=== PATIENT | female | born 1960 | race Caucasian/White ===

== ENCOUNTER → 2018-01-15 11:55 | Outpatient (CLI) | payer OTHER, SELFPAY ==
--- NOTE | 2018-01-15 | DI.MG.S_ITS ---
BILATERAL DIGITAL SCREENING MAMMOGRAM 3D/2D WITH CAD: 01/15/2018 CLINICAL: Routine screening. Comparison is made to exams dated: 08/19/2016 mammogram, 09/05/2014 mammogram, and 03/20/2015 mammogram - [facility]. There are scattered fibroglandular elements in both breasts. Current study was also evaluated with a Computer Aided Detection (CAD) system. There is an asymmetry in the right breast anterior depth lower region seen on the mediolateral oblique view only. No other significant masses, calcifications, or other findings are seen in either breast. IMPRESSION: INCOMPLETE: NEEDS ADDITIONAL IMAGING EVALUATION The asymmetry in the right breast is indeterminate. Additional views with possible ultrasound are recommended. This exam was interpreted at Station ID: [id number]. NOTE: For mammograms, a report in lay terms will be sent to the patient. Approximately 15% of breast malignancies will not be visualized mammographically. In the management of a palpable breast mass, a negative mammogram must not discourage biopsy of a clinically suspicious lesion. Electronically Signed By: Steve Barth M.D. ecl/:01/15/2018 20:03:46 letter sent: Additional Imaging Needed ACR BI-RADS Category 0: Incomplete 3340F
== END ==
PROVIDERS: PCP Nurse Practitioner Family; Visit Provider Nurse Practitioner Family
DX: Z12.31 Encounter for screening mammogram for malignant neoplasm of breast (principal)
CPT/HCPCS: 77063; 77067

== ENCOUNTER → 2018-02-05 09:26 | Outpatient (CLI) | payer OTHER, SELFPAY ==
--- NOTE | 2018-02-05 | DI.US.S_ITS ---
ULTRASOUND OF RIGHT BREAST: 02/05/2018 CLINICAL: Patient returns for additional imaging over a suspected mass in the right breast. Comparison is made to exams dated: 02/05/2018 mammogram, 01/15/2018 mammogram, and 08/19/2016 mammogram - [facility]. Color flow ultrasound of the right breast was performed. Rollins scale images of the real-time examination were reviewed. There is a 0.8 cm x 0.5 cm x 0.5 cm irregular mass in the right breast at 12 o'clock anterior depth 2 cm from the nipple. This irregular mass is hypoechoic. IMPRESSION: SUSPICIOUS OF MALIGNANCY - FOLLOW-UP RECOMMENDED The 0.8 cm x 0.5 cm x 0.5 cm irregular mass in the right breast is suspicious of malignancy. An ultrasound guided biopsy is recommended. Following biopsy recommend correlation with post biopsy clip placement. Pending pathology, an MRI may be needed for further evaluation of the remaining right breast asymmetry. Findings discussed with the patient by Dr. Greene of the department of radiology in person at the time of evaluation. This exam was interpreted at Station ID: [id number]. Electronically Signed By: Buck Zhao M.D. cj/:02/05/2018 11:32:07 letter sent: Biopsy Required Ultrasound BI-RADS: 4 Suspicious abnormality
--- NOTE | 2018-02-05 | DI.MG.S_ITS ---
UNILATERAL RIGHT DIGITAL DIAGNOSTIC MAMMOGRAM 3D/2D WITH ADDITIONAL VIEWS: 02/05/2018 CLINICAL: Additional evaluation requested from prior study. Comparison is made to exams dated: 01/15/2018 mammogram, 08/19/2016 mammogram, and 03/20/2015 mammogram - [facility]. There are scattered fibroglandular elements in the right breast. There is a 7 mm asymmetry in the right breast anterior depth superior region seen on the mediolateral oblique view only. There also is an asymmetry in the right breast central to the nipple in the retroareolar region. No other significant masses or calcifications are seen in the breast. IMPRESSION: INCOMPLETE: NEEDS ADDITIONAL IMAGING EVALUATION The 7 mm asymmetry in the right breast anterior depth superior region seen on the mediolateral oblique view only is indeterminate. An ultrasound is recommended. The asymmetry in the right breast central to the nipple in the retroareolar region is indeterminate. An ultrasound is recommended. This exam was interpreted at Station ID: [id number]. NOTE: For mammograms, a report in lay terms will be sent to the patient. Approximately 15% of breast malignancies will not be visualized mammographically. In the management of a palpable breast mass, a negative mammogram must not discourage biopsy of a clinically suspicious lesion. Electronically Signed By: Buck loera/rusty:02/05/2018 11:27:55 ACR BI-RADS Category 0: Incomplete 3340F
== END ==
PROVIDERS: PCP Nurse Practitioner Family; Visit Provider Nurse Practitioner Family
DX: R92.8 Other abnormal and inconclusive findings on diagnostic imaging of breast (principal); N63.10 Unspecified lump in the right breast, unspecified quadrant
CPT/HCPCS: 76642; 77065; G0279

== ENCOUNTER → 2018-03-05 08:10 | Outpatient (CLI) | payer OTHER, SELFPAY ==
--- NOTE | 2018-03-05 | DI.MG.S_ITS ---
UNILATERAL RIGHT DIGITAL DIAGNOSTIC MAMMOGRAM: 03/05/2018 CLINICAL: Post clip placement. Right breast mass. Comparison is made to exams dated: 02/05/2018 mammogram, 01/15/2018 mammogram, and 08/19/2016 mammogram - [facility]. There are scattered fibroglandular elements in the right breast. There is a adilia-shaped marker clip in the appropriate position in the right breast at 12 o'clock anterior depth. This marker clip placement is at biopsy site. IMPRESSION: POST PROCEDURE MAMMOGRAM FOR MARKER PLACEMENT There is a adilia-shaped marker clip in the appropriate position in the right breast at 12 o'clock anterior depth. This marker clip placement is at biopsy site. This exam was interpreted at Station ID: [id number]. NOTE: For mammograms, a report in lay terms will be sent to the patient. Approximately 15% of breast malignancies will not be visualized mammographically. In the management of a palpable breast mass, a negative mammogram must not discourage biopsy of a clinically suspicious lesion. Electronically Signed By: Steve Barth M.D. ecl/:03/05/2018 09:50:43 ACR BI-RADS Category Post-procedure mammogram for marker placement
--- NOTE | 2018-03-05 | PATH_ITS ---
[facility] Accession Number: [id number] . 01 Material submitted: . RIGHT BREAST . 01 Clinical history: . MASS 12:00 2CM FROM NIPPLE . 02 Diagnosis: Right Breast Needle Core Biopsy, 12 o'clock, 2 cm from the Nipple: Benign breast tissue with very dense hyalinized stroma, with no evidence of significant atypia or malignancy. MRV/03/06/2018 . 02 Electronically signed: . Randolph Du MD, Pathologist NPI- [id number] . 01 Gross description: . Received one formalin-filled container labeled with the patient's name and designated right breast mass 12 o'clock, 2 cm from nipple. The specimen is received with plastic filter in container. Sample loose in container. The specimen consists of multiple yellow-pickering cylindrical shaped portions of tissue and blood, which aggregate to 2.0 x 0.9 x 0.3 cm. The specimen is filtered, wrapped and entirely submitted in one cassette. Collection date 03/05/2018. Collection time 0905 per container. Total fixation time 12 hours up to 24. ([facility]:cmc80 [id number]) /[facility] . 02 Pathologist provided ICD-10: R92.8 . 02 CPT . 760314 Specimen Comment: A duplicate report has been generated due to demographic updates. Performed at: 01 [facility] [address] [facility] [place], [place], [place] [id number] MD Mario Landon MD Phone: [phone] Performed at: 02 [facility] [address] [place], [place] [id number] MD Boom Dejesus MD Phone: [phone]
--- NOTE | 2018-03-05 | DI.US.S_ITS ---
ULTRASOUND GUIDED BIOPSY RIGHT BREAST USING VACUUM DEVICE WITH MARKING DEVICE INSERTED AND POST DIGITAL MAMMOGRAPHIC IMAGIN03/05/2018 CLINICAL: Right breast mass. PATIENT CONSENT: Risks (minor bleeding, infection, vasovagal reaction and repeat procedure), benefits and alternatives were explained to the patient and written informed consent was obtained. Correlation is made to exams dated: 02/05/2018 ultrasound, 02/05/2018 mammogram, and 01/15/2018 mammogram - [facility]. An ultrasound guided biopsy using real-time ultrasound was performed for the concerning mass located in the right breast at 12 o'clock anterior depth 2 cm from the nipple. This was described on the previous ultrasound report. The skin was prepped in the usual manner. 5 mL of 1% lidocaine and 5 mL of 1% lidocaine with epinephrine was used for local anesthesia. A skin graciela was made in the breast. The abnormality was approached from the lateral aspect. A 13 gauge biopsy needle was placed adjacent to the abnormality under ultrasound guidance. Once the needle was documented to be in the correct location, six specimens were obtained using the Mammotome biopsy system. A Dash-shaped clip was inserted into the biopsy cavity. A skin adhesive was applied to the access site. Post procedure digital mammographic imaging demonstrates the clip at the targeted area. The specimens were sent to the laboratory for pathological analysis. IMPRESSION: ULTRASOUND GUIDED BIOPSY BENIGN Ultrasound guided biopsy of the mass in the right breast at 12 o'clock anterior depth 2 cm from the nipple was successful with no apparent post procedure complications. The pathology demonstrates benign breast tissue with very dense hyalinized stroma, which is concordant with imaging findings. Please note, the biopsy clip is located in the region of the 7 mm asymmetry described on the comparison diagnostic mammogram and ultrasound of 02/05/[address] Buck Zhao. Given the concordant radiologic and pathologic findings, breast MRI is not recommended at this time. However, there is no definite ultrasound correlate to the subareolar asymmetry described on the mammogram dated 02/05/18. 6 Month follow up mammogram and ultrasound is recommended to demostrate stability of this asymmmetry. This exam was interpreted at Station ID: [id number]. Steve Ugalde M.D. [facility],lk/:03/12/2018 17:19:00
--- NOTE | 2018-03-05 19:59 | PATH_ITS ---
Ptient Report Specimen ID: [id number] Control ID: [id number] [facility] PATHOLOGY ONLY [address] [facility] [id number] [facility] [address] Patient Details JANET ORTIZ : 1960 Age(y/m/d): Gender: F SSN: Specimen Details Date collected: 03/05/20181958 Local Date received: 03/05/2018 Date entered: 03/05/2018 Date reported: 03/08/2018 1305 ET Physician Details Ordering: Angelita CABAN Referring: ID: NPI: Additional Information: Clinical Info: [id number] Tests Ordered: Pathology Report Clinician Provided ICD Code(s) & Clinical History: (01) MASS 12:00 2CM FROM NIPPLE Material Submitted: () RIGHT BREAST Diagnosis: (02) Right Breast Needle Core Biopsy, 12 o'clock, 2 cm from the Nipple: Benign breast tissue with very dense hyalinized stroma, with no evidence of significant atypia or malignancy. MRV/03/06/2018 Pathologist Provided ICD Code(s): (02) R92.8 CPT Codes: (02) 829798 Gross Description: (01) Received one formalin-filled container labeled with the patient's name and designated right breast mass 12 o'clock, 2 cm from nipple. The specimen is received with plastic filter in container. Sample loose in container. The specimen consists of multiple yellow-pickering cylindrical shaped portions of tissue and blood, which aggregate to 2.0 x 0.9 x 0.3 cm. The specimen is filtered, wrapped and entirely submitted in one cassette. Collection date 03/05/2018. Collection time 0905 per container. Total fixation time 12 hours up to 24. ([facility]:cmc80 [id number]) /EMILY Comments: ACC: [id number] PID: [id number] A duplicate report has been generated due to demographic updates. Electronically signed by () Randolph Du MD, Pathologist NPI- [id number]
== END ==
PROVIDERS: PCP Nurse Practitioner Family; Visit Provider Nurse Practitioner Family
DX: R92.8 Other abnormal and inconclusive findings on diagnostic imaging of breast (principal); N63.10 Unspecified lump in the right breast, unspecified quadrant
CPT/HCPCS: 19083; 77065

== ENCOUNTER → 2018-09-21 08:54 | Outpatient (CLI) | payer OTHER, SELFPAY ==
--- NOTE | 2018-09-21 | DI.MG.S_ITS ---
UNILATERAL RIGHT DIGITAL DIAGNOSTIC MAMMOGRAM 3D/2D SHORT-TERM FOLLOW-UP: 09/21/2018 CLINICAL: Short term follow up right breast. Comparison is made to exams dated: 03/05/2018 mammogram, 02/05/2018 mammogram, 01/15/2018 mammogram, and 08/19/2016 mammogram - [facility]. There are scattered fibroglandular elements in right breast. There is a glandular asymmetry in the right breast at 12 o'clock anterior depth. This has not significantly changed. There is a biopsy clip associated with the asymmetry. No other significant masses or calcifications are seen in the breast. IMPRESSION: INCOMPLETE: NEEDS ADDITIONAL IMAGING EVALUATION The asymmetry in the right breast, previously biopsied, appears stable, consistent with fibroglandular tissue. An ultrasound is recommended for confirmation of stability and benignity. This was performed immediately following this exam. This exam was interpreted at Station ID: [id number]. NOTE: For mammograms, a report in lay terms will be sent to the patient. Approximately 15% of breast malignancies will not be visualized mammographically. In the management of a palpable breast mass, a negative mammogram must not discourage biopsy of a clinically suspicious lesion. Electronically Signed By: Galina martinez/:09/21/2018 09:50:44 ACR BI-RADS Category 0: Incomplete 3340F
--- NOTE | 2018-09-21 | DI.US.S_ITS ---
LIMITED ULTRASOUND OF RIGHT BREAST: 09/21/2018 CLINICAL: 6 month follow-up biopsy. Comparison is made to exams dated: 09/21/2018 mammogram, 03/05/2018 ultrasound biopsy, 03/05/2018 mammogram, 02/05/2018 ultrasound, 02/05/2018 mammogram, and 01/15/2018 mammogram - [facility]. Ultrasound of the right breast 12 o'clock region was performed. There is a 0.6 cm x 0.4 cm x 0.6 cm mass in the right breast at 12 o'clock anterior depth, stable in size and morphology. There is an associated biopsy clip. IMPRESSION: BENIGN There is no sonographic evidence of malignancy. The stable 0.6 cm x 0.4 cm x 0.6 cm mass in the right breast is biopsy proven benign. Return to annual mammogram screening schedule is recommended. Findings and recommendations were conveyed to the patient. This exam was interpreted at Station ID: [id number]. Electronically Signed By: Galina martinez/:09/21/2018 17:25:56 letter sent: Normal Exam Ultrasound BI-RADS: 2 Benign
== END ==
PROVIDERS: PCP Nurse Practitioner Family; Visit Provider Nurse Practitioner Family
DX: R92.8 Other abnormal and inconclusive findings on diagnostic imaging of breast (principal); D24.1 Benign neoplasm of right breast
CPT/HCPCS: 76642; 77065; G0279

== ENCOUNTER → 2019-01-21 14:56 | Outpatient (CLI) | payer OTHER, SELFPAY ==
--- NOTE | 2019-01-21 | DI.MG.S_ITS ---
BILATERAL DIGITAL SCREENING MAMMOGRAM 3D/2D WITH CAD: 01/21/2019 CLINICAL: Routine screening. Comparison is made to exams dated: 09/21/2018 mammogram, 03/05/2018 mammogram, 02/05/2018 mammogram, 01/15/2018 mammogram, 08/19/2016 mammogram, and 03/05/2018 ultrasound [facility]. There are scattered fibroglandular elements in both breasts. Current study was also evaluated with a Computer Aided Detection (CAD) system. There is a benign biopsy clip in the right breast. No significant masses, calcifications, or other findings are seen in either breast. There has been no significant interval change. IMPRESSION: NEGATIVE There is no mammographic evidence of malignancy. A 1 year screening mammogram is recommended. This exam was interpreted at Station ID: [id number]. NOTE: For mammograms, a report in lay terms will be sent to the patient. Approximately 15% of breast malignancies will not be visualized mammographically. In the management of a palpable breast mass, a negative mammogram must not discourage biopsy of a clinically suspicious lesion. Electronically Signed By: Steve martinez/rusty:01/21/2019 19:27:55 letter sent: Normal Exam ACR BI-RADS Category 1: Negative 3341F
== END ==
PROVIDERS: PCP Nurse Practitioner Family; Visit Provider Nurse Practitioner Family
DX: Z12.31 Encounter for screening mammogram for malignant neoplasm of breast (principal)
CPT/HCPCS: 77063; 77067

== ENCOUNTER → 2021-01-11 15:01 | Outpatient (CLI) | payer OTHER, SELFPAY ==
--- NOTE | 2021-01-11 | DI.MG.S_ITS ---
BILATERAL DIGITAL SCREENING MAMMOGRAM 3D/2D WITH CAD: 01/11/2021 CLINICAL: Routine screening. Comparison is made to exams dated: 01/21/2019 mammogram, 09/21/2018 mammogram, 03/05/2018 mammogram, 02/05/2018 mammogram, and 01/15/2018 mammogram - [facility]. There are scattered fibroglandular elements in both breasts. Current study was also evaluated with a Computer Aided Detection (CAD) system. There is a biopsy clip in the right breast. No significant masses, calcifications, or other findings are seen in either breast. There has been no significant interval change. IMPRESSION: NEGATIVE There is no mammographic evidence of malignancy. A 1 year screening mammogram is recommended. This exam was interpreted at Station ID: [id number]. NOTE: For mammograms, a report in lay terms will be sent to the patient. Approximately 15% of breast malignancies will not be visualized mammographically. In the management of a palpable breast mass, a negative mammogram must not discourage biopsy of a clinically suspicious lesion. Electronically Signed By: Ruben otero/rusty:01/11/2021 15:40:59 letter sent: Normal Exam ACR BI-RADS Category 1: Negative 3341F
== END ==
PROVIDERS: PCP Internal Medicine; Referring Provider Internal Medicine; Visit Provider Internal Medicine
DX: Z12.31 Encounter for screening mammogram for malignant neoplasm of breast (principal)
CPT/HCPCS: 77063; 77067

== ENCOUNTER → 2022-03-21 07:41 | Outpatient (CLI) | payer OTHER, SELFPAY ==
[2022-03-21 09:35] LABS: Basophils Absolute Auto 100 /uL (0-100); Basophils Percent Auto 1.7 % (0-2); Eosinophils Absolute Auto 100 /uL (0-450); Hematocrit 41.5 % (36-46); Hemoglobin 14.2 g/dL (12.0-16.0); Lymphocytes Absolute Auto 2300 /uL (1100-4500); Lymphocytes Percent Auto 48.8 % (25-40); Mean Corpuscular HGB Conc 34.2 % (30-36); Mean Corpuscular Hemoglobin 30.5 PG (26-34); Mean Corpuscular Volume 89.3 fL (80-100); Monocytes Absolute Auto 400 /uL (0-900); Monocytes Percent Auto 9.4 % (3-14); Neutrophils Absolute Auto 1800 /uL (1500-7000); Neutrophils Percent Auto 38.1 % (50-75); Platelet Count 290 X10^3/uL (150-400); Red Blood Cell Count 4.64 X10^6/uL (4.0-5.2); Red Cell Distribution Width 12.8 % (11.6-14.8); White Blood Cell Count 4.7 X10^3/uL (4.5-11.0)
[2022-03-21 11:00] LABS: Alanine Aminotransferase 26 IU/L (<35); Albumin 4.3 g/dL (3.5-5.0); Albumin Globulin Ratio 1.7 (1.0-2.8); Alkaline Phosphatase 62 U/L (38-126); Aspartate Aminotransferase 27 IU/L (14-36); BUN Creatinine Ratio 20.6 (6-22); Bilirubin Total 0.5 mg/dL (0.2-1.3); Blood Urea Nitrogen 14 mg/dL (7-17); Calcium 9.1 mg/dL (8.4-10.2); Carbon Dioxide 28 mmol/L (22-32); Chloride 98 mmol/L (98-107); Cholesterol 230 mg/dL (140-199); Estimated Glomerular Filt Rate > 60 mL/min (>60); Globulin 2.5 g/dL (1.7-4.1); Glucose 78 mg/dL (70-100); HDL Cholesterol 65 mg/dL (40-60); HEMOLYSIS < 15 (0-50); LDL Cholesterol Calculated 148 mg/dL (<100); Potassium 4.2 mmol/L (3.4-5.1); Sodium 136 mmol/L (137-145); Total Protein 6.8 g/dL (6.3-8.2); Triglycerides 86 mg/dL (35-150)
[2022-03-21 21:33] LABS: Add Manual Diff / Slide Review SLIDE REVIEW; Platelet Estimate Adequate on smear; RBC Morphology Normal Morphology
== END ==
PROVIDERS: PCP Internal Medicine; Referring Provider Internal Medicine; Visit Provider Internal Medicine
DX: E78.41 Elevated Lipoprotein(a) (principal)
CPT/HCPCS: 36415; 80053; 80061; 84443; 85025

== ENCOUNTER → 2022-04-02 12:50 | Outpatient (CLI) | payer OTHER, SELFPAY ==
--- NOTE | 2022-04-02 12:51 | DI.MG.S_ITS ---
BILATERAL DIGITAL SCREENING MAMMOGRAM 3D/2D WITH CAD: 04/02/2022 CLINICAL: Routine screening. Comparison is made to exams dated: 01/11/2021 mammogram, 01/21/2019 mammogram, and 01/15/2018 mammogram - [facility]. There are scattered areas of fibroglandular density in both breasts (category b / 25%-50% glandular tissue). Current study was also evaluated with a Computer Aided Detection (CAD) system. There is a biopsy clip in the right breast. No significant masses, calcifications, or other findings are seen in either breast. There has been no significant interval change. IMPRESSION: NEGATIVE There is no mammographic evidence of malignancy. A 1 year screening mammogram is recommended. Based on the Tyrer Cuzick model (a risk assessment model) the patient's lifetime risk is 8.4% and her 10 year risk is 3.3%. According to the ACR, ACS, and NCCN guidelines, an annual breast MRI exam along with mammogram is recommended if the patient's lifetime risk is 20% or greater. This exam was interpreted at Station ID: [id number]. NOTE: For mammograms, a report in lay terms will be sent to the patient. Approximately 15% of breast malignancies will not be visualized mammographically. In the management of a palpable breast mass, a negative mammogram must not discourage biopsy of a clinically suspicious lesion. Electronically Signed By: Ruben otero/rusty:04/04/2022 17:01:04 letter sent: Normal Exam ACR BI-RADS Category 1: Negative 3341F
== END ==
PROVIDERS: PCP Internal Medicine; Referring Provider Internal Medicine; Visit Provider Internal Medicine
DX: Z12.31 Encounter for screening mammogram for malignant neoplasm of breast (principal)
CPT/HCPCS: 77063; 77067

== ENCOUNTER → 2022-06-29 10:04 | Outpatient (CLI) | payer OTHER, SELFPAY ==
[2022-06-29 11:21] LABS: COVID19 -Nasal RAPID Negative (Negative)
== END ==
PROVIDERS: PCP Internal Medicine; Visit Provider Surgery
DX: Z20.822 Contact with and (suspected) exposure to COVID-19 (principal); Z01.812 Encounter for preprocedural laboratory examination
CPT/HCPCS: 87635; C9803

== ENCOUNTER 2022-06-30 07:16 | Day surgery (SDC) | payer OTHER, SELFPAY ==
--- NOTE | 2022-06-30 | PATH_ITS ---
[facility] Accession Number: [id number] No. of containers..02 Tissue . 01 Material submitted: . PART A: sigmoid colon - SIGMOID POLYP PART B: rectum - RECTAL POLYP . 01 Diagnosis: A. Sigmoid Colon, Polyp, Biopsy: Hyperplastic polyp. . B. Rectum, Polyp, Biopsy: Hyperplastic polyp. MRV 07/04/2022 1227 Local . 01 Electronically signed: . Carolyn Angela MD, Pathologist NPI- [id number] . 01 Gross description: . Part A: SIGMOID POLYP: Received in formalin is 1 fragment(s) of medley, soft tissue measuring 0.7 x 0.5 x 0.4 cm submitted entirely in 1 cassette(s) Part B: RECTAL POLYP: Received in formalin are 2 fragment(s) of medley, soft tissue measuring 0.5 x 0.5 x 0.4 cm to 0.7 x 0.5 x 0.4 cm submitted entirely in 1 cassette(s) /LESLIE 07/01/2022 0143 Local . 01 Pathologist provided ICD-10: K63.5 . 01 CPT . 214209, 508279 Specimen Comment: A courtesy copy of this report has been sent to [phone] Performed at: 01 [facility] [address] [place] [address] [address], [place], [place] [id number] MD Mario Landon MD Phone: [phone]
[2022-06-30] MEDS: LACTATED RINGERS 1,000 ML 42 ML IV (07:27)
[2022-06-30 07:41] VITALS: BP 120/60; PULSE 43; RESP 15; TEMP 36.4; O2SAT 100; BMI 33.6
--- NOTE | 2022-06-30 09:14 | PM.HP.1 ---
History of Present Illness History of Present Illness Date Patient Seen: 06/30/22 Time Patient Seen: 09:15 Chief complaint: SDC Narrative: Olga is a 61-year-old woman who is here for colonoscopy. She believes her last 1 was about 5 years ago and she thinks polyps may have been removed. She has a half brother who was diagnosed with colon cancer in his 30s who also has Crohn's disease. Patient History Family & Social History Social History: household members spouse Tobacco & Substance use: Smoking Status Never smoker alcohol intake current alcohol intake frequency a few times a week Substance Use Type does not use Meds Home Medications and Allergies Home Medications Medication Instructions Recorded Confirmed Type fluoxetine 20 mg capsule 40 mg PO DAILY 01/27/18 06/30/22 History Allergies Allergy/AdvReac Type Severity Reaction Status Date / Time No Known Drug Allergies Allergy Verified 06/30/22 07:30 Exam Vital Signs (past 8 hours): - 06/30/22 07:41 Temperature 97.5 F L Pulse Rate 43 L Respiratory Rate 15 Blood Pressure 120/60 Pulse Oximetry 100 Oxygen Delivery Method Room Air Oxygen Delivery Method Room Air Const General: healthy appearing Assessment & Plan Assessment and plan (1) Family history of colon cancer: Status: Acute (2) Personal history of colonic polyps: Status: Acute Plan We discussed risks benefits and rationale for colonoscopy for screening. She would like to proceed. Time Spent With Patient Critical Care time: I spent a total of [] minutes of critical care time on this patient's care today; this time is exclusive of procedural time.
--- NOTE | 2022-06-30 09:51 | PM.OP.COLON ---
Operative Date/Time/Diagnoses Date of procedure: 06/30/22 Time of procedure: 09:51 Pre-op diagnosis: Family history of colon cancer Post-op diagnosis: same Procedure & Clinicians Study performed: Colonoscopy Same procedure as scheduled: Yes Surgeon: Lauro Frausto Procedure Notes Procedure in detail: Surgeon: Lauro Frausto MD Anesthesia: Dr. Guzman Procedure: The patient was brought to the endoscopy suite, placed in left lateral decubitus position. The patient was connected to monitoring devices. A time-out was performed. Sedation was administered. Once the patient was adequately sedated, a digital rectal exam was performed and was normal. The scope was then inserted and advanced to the cecum where the appendiceal orifice was identified and photographed. The scope was then slowly withdrawn over greater than 6 minutes. The mucosa was thoroughly inspected. There was a 7 mm polyp in the sigmoid colon removed with a cold snare. The scope was retroflexed in the rectum. There was a 1 cm polyp in the distal rectum removed with 2 passes of the cold snare. There was also hypertrophied hemorrhoidal papilla just distal to that polyp. No other abnormalities were seen. The scope was straightened and removed. The patient was awakened and brought to recovery. Scope withdrawal time: 16 minutes Sedation time: 22 minutes EBL: 5 mL Findings: 7 mm polyp in the sigmoid colon and 1 cm polyp the distal rectal Post-procedure Disposition: PACU
[2022-06-30 09:52] VITALS: BP 100/52; PULSE 46; RESP 16; TEMP 36.6; O2SAT 99
[2022-06-30 10:10] VITALS: BP 100/60; PULSE 45; RESP 16; O2SAT 98
== END 2022-06-30 10:25 | disposition home or self-care (01) ==
PROVIDERS: PCP Internal Medicine; Referring Provider Surgery; Visit Provider Surgery
PROC: 0DJD8ZZ Inspection of Lower Intestinal Tract, Via Natural or Artificial Opening Endoscopic (ICD-10-PCS; CPT 45378; principal; 2022-06-30 08:15)
DX: Z12.11 Encounter for screening for malignant neoplasm of colon (principal); Z80.0 Family history of malignant neoplasm of digestive organs; K64.4 Residual hemorrhoidal skin tags; K63.5 Polyp of colon
CPT/HCPCS: 45385; J2704; J3010

== ENCOUNTER → 2022-08-05 07:45 | Outpatient (CLI) | payer OTHER, SELFPAY ==
[2022-08-05 08:10] LABS: Appearance Urine UA SL CLOUDY; Bilirubin Urine UA NEGATIVE (NEGATIVE); Color Urine UA YELLOW; Glucose Urine UA NEGATIVE (Negative); Ketones Urine UA NEGATIVE (NEGATIVE); Leukocyte Esterase Urine UA TRACE (NEGATIVE); Nitrite Urine UA NEGATIVE (Negative); Occult Blood Urine UA NEGATIVE (Negative); Protein Urine UA TRACE (Negative); Urobilinogen Urine UA 0.2 E.U./dL (0.2)
[2022-08-05 08:15] LABS: pH Urine UA 8.5 (4.5-8.0)
[2022-08-05 08:22] LABS: RBC Urine None Seen (0-5/HPF)
[2022-08-05 08:23] LABS: Bacteria Urine Moderate (10-30); Squamous Epithelial Cell Urine 1-5 /HPF (0-5/HPF); WBC Urine 10-30/HPF (0-5/HPF)
== END ==
PROVIDERS: PCP Internal Medicine; Referring Provider Internal Medicine; Visit Provider Internal Medicine
DX: R30.0 Dysuria (principal)
CPT/HCPCS: 81001; 87077; 87086; 87186

== ENCOUNTER → 2023-04-19 | Outpatient (CLI) | payer OTHER, SELFPAY ==
--- NOTE | 2023-04-19 17:17 | DI.MG.S_ITS ---
BILATERAL DIGITAL SCREENING MAMMOGRAM 3D/2D WITH CAD: 04/19/2023 CLINICAL: Routine screening. Comparison is made to exams dated: 04/02/2022 mammogram, 01/11/2021 mammogram, and 01/21/2019 mammogram - [facility]. There are scattered areas of fibroglandular density in both breasts (category b / 25%-50% glandular tissue). Current study was also evaluated with a Computer Aided Detection (CAD) system. There is a biopsy clip in the right breast. No significant masses, calcifications, or other findings are seen in either breast. IMPRESSION: BENIGN There is no mammographic evidence of malignancy. A 1 year screening mammogram is recommended. Based on the Tyrer Cuzick model (a risk assessment model) the patient's lifetime risk is 8.3% and her 10 year risk is 3.3%. According to the ACR, ACS, and NCCN guidelines, an annual breast MRI exam along with mammogram is recommended if the patient's lifetime risk is 20% or greater. This exam was interpreted at Station ID: [id number]. NOTE: For mammograms, a report in lay terms will be sent to the patient. Approximately 15% of breast malignancies will not be visualized mammographically. In the management of a palpable breast mass, a negative mammogram must not discourage biopsy of a clinically suspicious lesion. Electronically Signed By: Lubna Lucero M.D., PH.D angel/rusty:04/27/2023 09:21:43 letter sent: Normal Exam ACR BI-RADS Category 2: Benign Finding(s) 3342F
== END ==
LOC: MAMMO 17:16
PROVIDERS: PCP Internal Medicine; Referring Provider Internal Medicine; Visit Provider Internal Medicine
DX: Z12.31 Encounter for screening mammogram for malignant neoplasm of breast (principal)
CPT/HCPCS: 77063; 77067

== ENCOUNTER → 2023-05-07 10:41 | Outpatient (CLI) | payer OTHER, SELFPAY | PROVIDERS: PCP Internal Medicine; Visit Provider Physician Assistant | DX: R10.9 Unspecified abdominal pain (principal) | CPT/HCPCS: 87077; 87086; 87186 ==

== ENCOUNTER → 2025-05-24 09:30 | Outpatient (CLI) | payer OTHER, SELFPAY ==
--- NOTE | 2025-05-24 09:31 | DI.MG.S_ITS ---
MM screening mammo BI: 05/24/2025. BI-RADS: 2 CLINICAL: 64-year old female for bilateral screening mammogram. Tyrer-Cuzick lifetime risk of 8.4%. No personal or first-degree family history of breast cancer. The patient had a prior right breast biopsy. PRIOR EXAMS 04/19/2023, 04/02/2022, 01/11/2021, 01/21/2019. MAMMOGRAPHY TECHNIQUE: 2D and 3D (tomosynthesis) digital mammographic views obtained, with additional images as needed for full coverage. Current study was also evaluated with a Computer Aided Detection (CAD) system. DENSITY B. There are scattered areas of fibroglandular density. MAMMOGRAPHY FINDINGS Right: Biopsy marker present on the right. There are no suspicious masses, calcifications, or other findings in the breast. Left: No suspicious mass, asymmetry, microcalcification, or other abnormality seen. IMPRESSION: Right * No evidence of malignancy with benign findings. Left * No evidence of malignancy. RECOMMENDATIONS Bilateral * Annual screening mammography. OVERALL ASSESSMENT CATEGORY BI-RADS-2: Benign. The [employer] recommends annual screening mammography beginning at age 40 for women with average risk of breast cancer. ELECTRONICALLY SIGNED: Joanne Manuel M.D. on 05/26/2025 at 03:07:43 PM PT Interpreting Station ID: [id number]
== END ==
PROVIDERS: PCP Internal Medicine; Referring Provider Internal Medicine; Visit Provider Internal Medicine
DX: Z12.31 Encounter for screening mammogram for malignant neoplasm of breast (principal)
CPT/HCPCS: 77063; 77067